=== PATIENT | female | born 1950 | race Caucasian/White ===

== ENCOUNTER 2019-05-09 05:55 | Day surgery (SDC) | payer OTHER ==
[~2019-05-09 05:55] MED LIST: ALBU90OI61 INH; AMLO10 PO; ASPI325 PO; Advil200 M1 PO; B Complex #11 EACH PO; LOSA50 PO; Magnesium200 MG PO; Oyster Shell C500 MG PO
[2019-05-09] MEDS ORDERED: METO25 PO (06:53)
[2019-05-09] MEDS ORDERED: ELIQUIS5 MG PO (06:54)
--- NOTE | 2019-05-09 07:40 | NUR ---
PT CARDIOVERTED WITH 200J X2. AFIB 85BPM POST CARDIOVERSION.
--- NOTE | 2019-05-09 08:18 | NUR ---
PT VERBALIZED UNDERSTANDING OF WRITTEN AND VERBAL D/C INST. IV REMOVED. PT TAKEN OUT OF THE HRT CENTER VIA W/C.
== END 2019-05-11 22:49 | disposition home or self-care (01) ==
LOC: MHTC 05:55
DX: I48.0 Paroxysmal atrial fibrillation (principal); I44.7 Left bundle-branch block, unspecified; I34.0 Nonrheumatic mitral (valve) insufficiency; I10 Essential (primary) hypertension; E66.01 Morbid (severe) obesity due to excess calories; Z87.891 Personal history of nicotine dependence; Z79.899 Other long term (current) drug therapy; Z79.01 Long term (current) use of anticoagulants; Z88.8 Allergy status to other drugs, medicaments and biological substances; Z68.42 Body mass index [BMI] 45.0-49.9, adult
CPT/HCPCS: 92960; 93005; 93010; 93312; 93325; 99152; J2250; J3010; J7030

== ENCOUNTER 2019-07-10 08:39 | Day surgery (SDC) | payer OTHER ==
[~2019-07-10] VITALS: Ht 162.6 cm; Wt 123.0 kg
[~2019-07-10 08:39] MED LIST changes: +ELIQUIS5 MG PO; +METO25 PO
[2019-07-10] MEDS ORDERED: ACET500 PO (09:21)
[2019-07-10] MEDS ORDERED: CYCL10 PO (09:23)
[2019-07-10] MEDS ORDERED: TRAM50 PO (09:23)
[2019-07-10] MEDS ORDERED: Amiodarone HCl200 MG PO (09:25)
--- NOTE | 2019-07-10 10:05 | NUR ---
PT DROWSY, POST CARDIOVERSION, ROUSES TO VERBAL STIMULI; BUT FALLS BACK TO SLEEP EASILY WHEN LEFT ALONE. MONITOR SB WITH 1ST DEGREE AND IVCD 49-50'S, B/P 135/64, SPO2 94% ON 2L NC.
--- NOTE | 2019-07-10 11:05 | NUR ---
PT AND SISTER RECEIVED MEDICATION LIST, "AFTER CARE" INSTRUCTIONS AND DISCHARGE INSTRUCTIONS; VERBALIZED GOOD UNDERSTANDING. PT DRESSED SELF WITHOUT ISSUE; IV REMOVED-CANNULA INTACT.
--- NOTE | 2019-07-10 11:10 | NUR ---
PT LEFT FACILITY VIA W/C WITH SISTER, CONDITION STABLE.
== END 2019-07-10 23:12 | disposition home or self-care (01) ==
LOC: MHTC 08:39
DX: I48.0 Paroxysmal atrial fibrillation (principal); I44.7 Left bundle-branch block, unspecified; I34.0 Nonrheumatic mitral (valve) insufficiency; I10 Essential (primary) hypertension; Z87.891 Personal history of nicotine dependence; Z88.8 Allergy status to other drugs, medicaments and biological substances; Z79.899 Other long term (current) drug therapy; Z79.01 Long term (current) use of anticoagulants
CPT/HCPCS: 92960; 93005; 93010; 99152; J2250; J3010; J7040

== ENCOUNTER 2019-10-08 10:25 | Day surgery (SDC) | payer OTHER ==
[~2019-10-08] VITALS: Ht 162.6 cm; Wt 116.5 kg
[~2019-10-08 10:25] MED LIST changes: +ACET325 PO; +ACET500 PO; +Amiodarone HCl200 MG PO; +CYCL10 PO; +Calcium 250+D1 EACH PO; +LOSARTAN POTAS100 MG PO; +TRAM50 PO
[2019-10-08] MEDS ORDERED: METO25ER (11:38)
== END 2019-10-08 13:09 | disposition home or self-care (01) ==
LOC: ORSCSDS 10:25
PROVIDERS: Internal Medicine Gastroenterology
PROC: 0DBH8ZX Excision of Cecum, Via Natural or Artificial Opening Endoscopic, Diagnostic (ICD-10-PCS; principal; 2019-10-08 11:45)
PROC: 0DBL8ZX Excision of Transverse Colon, Via Natural or Artificial Opening Endoscopic, Diagnostic (ICD-10-PCS; principal; 2019-10-08 11:45)
PROC: 0DBK8ZX Excision of Ascending Colon, Via Natural or Artificial Opening Endoscopic, Diagnostic (ICD-10-PCS; principal; 2019-10-08 11:45)
DX: Z12.11 Encounter for screening for malignant neoplasm of colon (principal); Z86.010 Personal history of colon polyps; D12.3 Benign neoplasm of transverse colon; D12.0 Benign neoplasm of cecum; D12.2 Benign neoplasm of ascending colon; K57.30 Diverticulosis of large intestine without perforation or abscess without bleeding; K64.1 Second degree hemorrhoids; I48.91 Unspecified atrial fibrillation; Z79.01 Long term (current) use of anticoagulants; E66.01 Morbid (severe) obesity due to excess calories; Z68.41 Body mass index [BMI] 40.0-44.9, adult; Z79.899 Other long term (current) drug therapy
CPT/HCPCS: 88305; J2704; J7120

== ENCOUNTER 2021-03-22 05:56 | Day surgery (SDC) | payer OTHER ==
[~2021-03-22] VITALS: Ht 162.6 cm; Wt 118.0 kg
[~2021-03-22 05:56] MED LIST changes: +METO25ER PO
[2021-03-22] MEDS ORDERED: AMIODARONE HCL100 M3 PO (06:41)
--- NOTE | 2021-03-22 08:20 | NUR ---
PT TO RECOVERY ROOM POST PROCEDURE. PT AWAKE AND CONVERSING APPROPRIATELY; DENIES PAIN POST PROCEDURE. MONITOR AFIB WITH PVC'S 70'S, B/P 141/63, AFEBRILE, SPO2 94% RA. R RADIAL SITE NO SWELLING/HEMATOMA, TR BAND IN PLACE 11 CC AIR; RUE POSITIVE PLEUTH POST TR BAND PLACEMENT. PT TAKING BREAKFAST WITHOUT PROBLEM.
--- NOTE | 2021-03-22 08:20 | NUR ---
ADDENDUM RHC SITE NO SWELLING/HEMATOMA, TEGADERM DRSG INTACT.
--- NOTE | 2021-03-22 09:25 | NUR ---
PT AMB TO BATHROOM WITHOUT ISSUE, SITE UNCHANGED POST ACTIVITY.
[2021-03-22] MEDS ORDERED: FURO40 PO (09:29)
--- NOTE | 2021-03-22 10:55 | NUR ---
PT DRESSED SELF WITHOUT ISSUE, SITE UNCHANGED. TR BAND REMOVED CLOTH DOT AND WRIST IMMOBILIZER PLACED; IV REMOVED-CANNULA INTACT. PT DECLINED THE NEED FOR A SLING.
--- NOTE | 2021-03-22 11:13 | NUR ---
PT RECEIVED DISCHARGE INSTRUCTIONS, SITE MANAGEMENT, MED LIST AND AFTER CARE INSTRUCTIONS; VERBALIZED GOOD UNDERSTANDING. PT LEFT FACILITY VIA W/C, CONDITION STABLE.
== END 2021-03-22 11:00 | disposition home or self-care (01) ==
LOC: MHTC 05:56
DX: I11.0 Hypertensive heart disease with heart failure (principal); I50.42 Chronic combined systolic (congestive) and diastolic (congestive) heart failure; I42.8 Other cardiomyopathies; I08.1 Rheumatic disorders of both mitral and tricuspid valves; I25.10 Atherosclerotic heart disease of native coronary artery without angina pectoris; I27.20 Pulmonary hypertension, unspecified; E66.01 Morbid (severe) obesity due to excess calories; Z68.41 Body mass index [BMI] 40.0-44.9, adult; Z87.891 Personal history of nicotine dependence; Z88.8 Allergy status to other drugs, medicaments and biological substances
CPT/HCPCS: 76937; 93005; 93010; 93456; 99152; C1769; C1894; J1644; J2250; J3010; J7030; J7050; Q9967

== ENCOUNTER 2022-11-15 08:30 | Day surgery (SDC) | payer OTHER ==
[~2022-11-15] VITALS: Ht 160 cm; Wt 103.2 kg
[~2022-11-15 08:30] MED LIST changes: +AEREDS PO; +AMIODARONE HCL100 M3 PO; +AMLO5 PO; +CALCIUM PO; +FURO40 PO; +MASOPHEN325 M3 PO; +VALS80 PO; +ZANAFLEX4 M1 PO
--- NOTE | 2022-11-15 11:26 | NUR ---
11/15/22 Chandler6 Latoya Arambula PATIENT RECEIVED VANCO 1GM IN THE PREOP SETTING PRIOR TO ARRIVING IN THE OR.
--- NOTE | 2022-11-15 18:56 | NUR ---
SHIFT SUMMARY PT A&OX4, VSS/RA, GEETHA PO, VOIDING, AMB SBA FWW & GB, TO BRP AND UP TO CHAIR, PHYSICAL THERAPY EVAL'D, PAIN MANAGED WITH TYLENOL AND TORADOL. S/P R KHARI, SURGICAL DRESSING DRY/INTACT, BLE ELEVATED WITH POLAR SARAI/TEDS/SCDS ON. WILL REPORT TO ONCOMING CIARAN LEON.
[2022-11-16 04:18] LABS: BASOPHILS ABSOLUTE AUTO 0.05 K/mm3 (0.00-0.23); BASOPHILS PERCENT AUTO 0 % (0-2); EOSINOPHILS ABSOLUTE AUTO 0.06 K/mm3 (0.00-0.68); EOSINOPHILS PERCENT AUTO 0 % (0-6); Hematocrit 39.7 % (33.0-51.0); Hemoglobin 12.8 g/dL (11.5-16.0); IMMATURE GRAN ABSOLUTE AUTO 0.09 K/mm3 (0.00-0.10); IMMATURE GRAN PERCENT AUTO 1 % (0-1); LYMPHOCYTES PERCENT AUTO 17 % (21-46); MONOCYTES ABSOLUTE AUTO 1.59 K/mm3 (0.16-1.47); MONOCYTES PERCENT AUTO 9 % (4-13); Mean Corpuscular HGB 28.4 pg (26.0-34.0); Mean Corpuscular HGB Conc 32.2 g/dL (31.5-36.5); Mean Corpuscular Volume 88 fL (80-100); Mean Platelet Volume 9.6 fL (9.1-12.4); NEUTROPHILS ABSOLUTE AUTO 13.43 K/mm3 (1.96-9.15); NEUTROPHILS PERCENT AUTO 74 % (41-73); Platelet Count 244 K/mm3 (150-400); RDW Coefficient Variation 13.2 % (11.7-14.2); RDW Standard Deviation 43.1 fL (35.1-46.3); White Blood Cell Count 18.22 K/mm3 (4.00-11.30)
[2022-11-16 04:30] LABS: Bun/Creatinine Ratio 29.6 (12.0-20.0); Calcium, Blood 8.9 mg/dL (8.5-10.1); Creatinine, Blood 0.68 mg/dL (0.40-1.00); Magnesium, Blood 2.3 mg/dL (1.6-2.4); Potassium, Blood 4.4 mmol/L (3.5-5.5)
--- NOTE | 2022-11-16 07:24 | NUR ---
SUMMARY PT TOLERATING PO,PAIN CONTROLLED.VOIDING WITHOUT DIFF,AMBULATING WITH 1 ASSIST AND FWW WITH GAIT BELT.PTS WBC ELEVATED THIS AM.DAY RN AWARE AND AGREES TO FOLLOW UP.
--- NOTE | 2022-11-16 11:30 | NUR ---
DISCHARGE SUMMARY PT A&OX4, VSS/RA, GEETHA PO, VOIDING WELL, AMB SBA FWW, PAIN MANAGED, IV DC'D. DC INS PROVIDED. PT REP UNDERSTANDING THOSE INSTRUCTIONS INCLUDING FU WITH SURGEON, PT OUTPT/EXERCISES, DRESSING CHANGES, OOB/SHORT FREQUENT AMB W/FWW, HAVING ABX AND PAIN MEDS SCRIPT FILLED, TCDB/I.S. USE. PT LEFT FLOOR VIA WC TO GO HOME WITH SON, WITH ALL PERSONAL POSSESSIONS INCLUDING DC PACKET, AQUACEL DRESSINGS.
== END 2022-11-16 11:37 | disposition home or self-care (01) ==
LOC: ORSCMMR 08:30 → ORD 10:45 → SURS 13:33 → ORSCMMR 11-16 11:37
PROVIDERS: Orthopaedic Surgery
PROC: 0SR90JA Replacement of Right Hip Joint with Synthetic Substitute, Uncemented, Open Approach (ICD-10-PCS; principal; 2022-11-15 10:45)
DX: M16.12 Unilateral primary osteoarthritis, left hip (principal); I10 Essential (primary) hypertension; I48.91 Unspecified atrial fibrillation; Z79.01 Long term (current) use of anticoagulants; G47.33 Obstructive sleep apnea (adult) (pediatric); E66.01 Morbid (severe) obesity due to excess calories; Z68.41 Body mass index [BMI] 40.0-44.9, adult; Z79.899 Other long term (current) drug therapy
CPT/HCPCS: 36415; 72170; 80048; 83735; 85025; 97110; 97110-CQ; 97116-CQ; 97161; 97165; 97530; 97530-CQ; 97535; A9270; C1713; C1776; J0171; J0690; J0735; J1100; J1885; J2250; J2405; J2704; J2795; J3010; J3370; J7120

== ENCOUNTER 2023-03-26 06:35 | Day surgery (SDC) | payer OTHER ==
[~2023-03-26] VITALS: Ht 162.6 cm; Wt 104.8 kg
[2023-03-26] MEDS ORDERED: PRESERVISION A1 EAC2 (07:04)
--- NOTE | 2023-03-26 09:17 | NUR ---
03/26/23 0917 Julienne Lam IV DC'D CATH INTACT. PRESSURE DRESSING APPLIED, PT TOLERATED WELL
[2023-03-26 09:27] VITALS: BP 111/73
== END 2023-03-26 09:17 | disposition home or self-care (01) ==
LOC: ORSCSDS 06:35
PROVIDERS: Student in an Organized Health Care Education/Training Program
PROC: 0DBH8ZX Excision of Cecum, Via Natural or Artificial Opening Endoscopic, Diagnostic (ICD-10-PCS; principal; 2023-03-26 08:00)
PROC: 0DBL8ZX Excision of Transverse Colon, Via Natural or Artificial Opening Endoscopic, Diagnostic (ICD-10-PCS; principal; 2023-03-26 08:00)
DX: Z12.11 Encounter for screening for malignant neoplasm of colon (principal); Z86.010 Personal history of colon polyps; D12.0 Benign neoplasm of cecum; D12.3 Benign neoplasm of transverse colon; I10 Essential (primary) hypertension; I48.91 Unspecified atrial fibrillation; Z79.01 Long term (current) use of anticoagulants; E66.9 Obesity, unspecified; Z68.39 Body mass index [BMI] 39.0-39.9, adult
CPT/HCPCS: 88305; J2704; J7120